=== PATIENT | male | born 1975 | race American Indian/Alaskan Native ===

== ENCOUNTER 2018-01-08 11:22 | Outpatient (CLI) | payer OTHER ==
[2018-01-08 11:51] LABS: Hematocrit 39.9 % (35.5-45.6); Hemoglobin 13.2 gm/dl (11.8-15.2); Mean Corpuscular HGB Conc 33 % (32-34); Mean Corpuscular Hemoglobin 30 pg (28-32); Mean Corpuscular Volume 90 fl (84-94); Platelet Count 193 K/mm3 (140-440); Red Blood Count 4.45 M/mm3 (3.65-5.03); Red Cell Distribution Width 14.3 % (13.2-15.2)
[2018-01-08 12:12] LABS: Alanine Aminotransferase 22 units/L (7-56); Albumin 4.3 g/dL (3.9-5); BUN/Creatinine Ratio 12; Blood Urea Nitrogen 12 mg/dL (9-20); Calcium 9.2 mg/dL (8.4-10.2); Erythrocyte Sedimentation Rate 2 mm/Hr (0-20); Hemolysis Index 4
[2018-01-08 12:26] LABS: Free T4 (Free Thyroxine) 1.21 ng/dL (0.76-1.46)
== END 2018-01-08 11:23 | disposition home or self-care (01) ==
LOC: LAB 11:22
PROVIDERS: ATTEND Specialist
DX: R41.1 Anterograde amnesia (principal)
CPT/HCPCS: 36415; 80053; 82607; 82747; 84439; 84443; 85027; 85652

== ENCOUNTER 2018-01-17 09:53 | Outpatient (CLI) | payer OTHER ==
--- NOTE | 2018-01-23 17:11 | Magnetic Resonance Report ---
MR scan of the cranium was performed without contrast. Pulse sequences included: 1. T1 weighted sagittal and axial images without contrast 2. T2 weighted axial and coronal images 3. FLAIR axial images 4. Diffusion-weighted axial images 5. Apparent diffusion coefficient images 6. Gradient echo axial images Views of the posterior fossa showed a normal craniocervical junction. Cerebellar pontine angles were normal with normal seventh-eighth nerve complexes. Brainstem and cerebellum were normal. The ventricular system showed no dilatation or distortion. Images of the hemispheres showed no areas of increased or decreased signal. Sinuses, flow voids in the [place] of [place], orbits, pituitary and basal ganglia were normal. Impression: Normal MR scan of the cranium without contrast.
== END 2018-01-17 09:54 | disposition home or self-care (01) ==
LOC: MRI 09:53
PROVIDERS: ATTEND Specialist
DX: R41.1 Anterograde amnesia (principal)
CPT/HCPCS: 70551